=== PATIENT | male | born 1955 | race African-American/Black ===

== ENCOUNTER 2017-02-17 11:15 | Emergency (ER) | payer MEDICAID ==
[~2017-02-17] VITALS: Ht 185.4 cm; Wt 84.0 kg
[2017-02-17 11:18] VITALS: BP 179/102
[2017-02-17] MEDS ORDERED: METH10 PO (11:24)
[2017-02-17 11:27] LABS: GLUCOSE,POINT OF CARE 120 MG/DL (70-110)
== END 2017-02-17 11:24 | disposition left against medical advice (07) ==
LOC: EMS 11:17
DX: R69 Illness, unspecified (principal); Z53.21 Procedure and treatment not carried out due to patient leaving prior to being seen by health care provider
CPT/HCPCS: 82962

== ENCOUNTER 2024-01-14 12:15 | Emergency (ER) | payer MEDICARE, OTHER ==
[~2024-01-14] VITALS: Ht 182.9 cm; Wt 90.5 kg
[~2024-01-14 12:15] MED LIST: METH10 PO
[2024-01-14 12:29] VITALS: TEMP 97.7
[2024-01-14] MEDS ORDERED: TRAZ-257 PO (12:33)
[2024-01-14] MEDS ORDERED: SERT-440 PO (12:33)
[2024-01-14] MEDS ORDERED: OLME20TA68 PO (12:33)
[2024-01-14] MEDS ORDERED: RISP0.2515 PO (12:33)
[2024-01-14] MEDS ORDERED: TAMS0.4C94 PO (12:33)
[2024-01-14] MEDS ORDERED: GABA-1181 PO (12:33)
[2024-01-14] MEDS ORDERED: RISP1TAB48 PO (12:33)
[2024-01-14] MEDS: KETOROLAC TROMETHAMINE 30 MG/ML VIAL IVP ONE ×2 (12:52→15:51)
[2024-01-14] MEDS: SODIUM CHLORIDE 0.9% 1,000 ML IV ONE (12:52)
[2024-01-14 13:04] LABS: BASOPHILS % (AUTO) 0.6 % (0.0-2.0); EOSINOPHILS % (AUTO) 0.3 % (1.0-6.0); HEMATOCRIT 39.5 % (41-53); LYMPHOCYTES # (AUTO) 1.2 K/uL (1.0-4.8); LYMPHOCYTES % (AUTO) 12.7 % (22.0-44.0); MEAN CORPUSCULAR HGB CONC 32.8 G/dL (31.0-37.0); MEAN CORPUSCULAR VOLUME 95 fL (80-100); MONOCYTES # (AUTO) 0.6 K/uL (0.1-1.0); MONOCYTES % (AUTO) 6.6 % (2.0-9.0); NEUTROPHILS # (AUTO) 7.6 K/uL (1.8-7.7); NEUTROPHILS % (AUTO) 79.8 % (40.0-70.0); PLATELET COUNT (AUTO) 146 K/uL (150-450); RED BLOOD CELL COUNT(AUTO) 4.18 MIL/uL (4.50-5.90); RED CELL DISTRIBUTION WIDTH 15.3 % (11.5-14.5); WHITE BLOOD COUNT (AUTO) 9.5 K/uL (4.5-11.0)
[2024-01-14] MEDS ORDERED: SODIUM CHLORIDE 0.9% 100 ML ONE (13:05)
[2024-01-14] MEDS ORDERED: IOHEXOL 350 MG/ML 100 ML VIAL ONE (13:05)
[2024-01-14 13:13] LABS: CALCIUM, TOTAL 9.1 mg/dL (8.8-10.5); CREATININE 1.5 mg/dL (0.60-1.30); POTASSIUM 3.7 mmol/L (3.5-5.1)
[2024-01-14 13:19] LABS: ALBUMIN 3.2 g/dL (3.4-5.0); BILIRUBIN,TOTAL 0.4 mg/dL (0.1-1.0); TOTAL PROTEIN, SERUM 7.8 g/dL (6.4-8.2)
[2024-01-14 14:21] LABS: APPEARANCE,URINE CLEAR (CLEAR); BILIRUBIN,URINE NEGATIVE (NEGATIVE); COLOR,URINE YELLOW (YELLOW); GLUCOSE, URINE (UA) NEGATIVE (NEGATIVE); KETONES,URINE NEGATIVE (NEGATIVE); LEUKOCYTE ESTERASE ,URINE MODERATE (NEGATIVE); NITRATE,URINE NEGATIVE (NEGATIVE); OCCULT BLOOD,URINE MODERATE (NEGATIVE); PROTEIN,URINE 30-70 mg/dL (NEGATIVE); SPECIFIC GRAVITIY, URINE 1.031 (1.003-1.030); UROBILINOGEN,URINE <=1.0 mg/dL (<=1.0)
[2024-01-14 14:27] LABS: BACTERIA,URINE Few /HPF (None Seen); CALCIUM OXALATE CRYSTALS,UR Few /LPF (None Seen)
[2024-01-14 14:30] VITALS: BP 123/70; PULSE 71; RESP 20
[2024-01-14] MEDS: TraMADol HCL 50 MG TABLET PO ONE (15:51)
[2024-01-14] MEDS ORDERED: TRAM50TA5 PO (16:00)
[2024-01-14] MEDS ORDERED: CEPH-558 PO (16:02)
== END 2024-01-14 16:43 | disposition home or self-care (01) ==
LOC: EMS 12:16
DX: N20.0 Calculus of kidney (principal); Z85.46 Personal history of malignant neoplasm of prostate; Z85.89 Personal history of malignant neoplasm of other organs and systems
CPT/HCPCS: 99285; 74177; 96374; 96361; 80053; 81001; 83690; 85025; 36415; 87086; 87186; 96376; J1885; Q9967; J7030; J7050

== ENCOUNTER 2024-10-05 16:59 | Inpatient (IN) | payer MEDICARE, OTHER ==
[~2024-10-05] VITALS: Ht 180.3 cm; Wt 87.7 kg
[~2024-10-05 16:59] MED LIST changes: +CEPH-558 PO; +GABA-1181 PO; -METH10 PO; +OLME20TA68 PO; +RISP0.2515 PO; +RISP1TAB48 PO; +SERT-440 PO; +TAMS0.4C94 PO; +TRAM50TA5 PO; +TRAZ-257 PO
[2024-10-05 17:50] LABS: BASOPHILS % (AUTO) 0.7 % (0.0-2.0); EOSINOPHILS % (AUTO) 2.3 % (1.0-6.0); HEMATOCRIT 46.2 % (41-53); HEMOGLOBIN 15.1 g/dL (13.5-17.5); LYMPHOCYTES # (AUTO) 3.1 K/uL (1.0-4.8); LYMPHOCYTES % (AUTO) 37.9 % (22.0-44.0); MEAN CORPUSCULAR HEMOGLOBIN 31.2 pg (26.0-34.0); MEAN CORPUSCULAR HGB CONC 32.7 G/dL (31.0-37.0); MEAN CORPUSCULAR VOLUME 95 fL (80-100); MONOCYTES # (AUTO) 0.6 K/uL (0.1-1.0); MONOCYTES % (AUTO) 7.3 % (2.0-9.0); NEUTROPHILS # (AUTO) 4.2 K/uL (1.8-7.7); NEUTROPHILS % (AUTO) 51.8 % (40.0-70.0); PLATELET COUNT (AUTO) 146 K/uL (150-450); RED BLOOD CELL COUNT(AUTO) 4.86 MIL/uL (4.50-5.90); RED CELL DISTRIBUTION WIDTH 16.5 % (11.5-14.5); WHITE BLOOD COUNT (AUTO) 8.2 K/uL (4.5-11.0)
[2024-10-05 17:58] LABS: ANION GAP 13 mmol/L (8-16); CALCIUM, TOTAL 9.8 mg/dL (8.8-10.5); CARBON DIOXIDE 26 mmol/L (22-29); CHLORIDE 103 mmol/L (98-107); CREATININE 0.93 mg/dL (0.60-1.30); GLOMERULAR FILTR. RATE CALC > 60 mL/min (>60); GLUCOSE,RANDOM 76 mg/dL (70-110); POTASSIUM 3.6 mmol/L (3.5-5.1); SODIUM SERUM 142 mmol/L (136-145); UREA NITROGEN, BLOOD 13 mg/dL (7-18)
[2024-10-05 18:08] LABS: LIPASE 57 U/L (16-77); TROPONIN I-HIGH SENSITIVITY 40 ng/L (<76)
[2024-10-05 18:10] LABS: ALCOHOL, BLOOD (SERUM) 236 mg/dL (0-10)
[2024-10-05] MEDS ORDERED: SERT-439 PO (18:35)
[2024-10-05] MEDS ORDERED: NIFE-79 PO (18:35)
[2024-10-05] MEDS ORDERED: TRAZ-252 PO (18:35)
[2024-10-05] MEDS ORDERED: MELO-108 PO (18:35)
[2024-10-05] MEDS: SODIUM CHLORIDE 0.9% 2,000 ML IV ONE (18:41)
[2024-10-05 18:51] LABS: ALCOHOL, URINE DRUG SCREEN POSITIVE (NEGATIVE); AMPHET/METH SCREEN,URINE NEGATIVE (NEGATIVE); BARBITURATE SCREEN, URINE NEGATIVE (NEGATIVE); BENZODIAZEPINES SCREEN,URINE NEGATIVE (NEGATIVE); CANNABINOID SCREEN,URINE POSITIVE (NEGATIVE); COCAINE SCREEN,URINE NEGATIVE (NEGATIVE); METHADONE SCREEN, URINE NEGATIVE (NEGATIVE); OPIATE SCREEN,URINE NEGATIVE (NEGATIVE); PHENCYCLIDINE SCREEN,URINE NEGATIVE (NEGATIVE)
[2024-10-05] MEDS ORDERED: IPRATROPIUM BROMIDE 0.5 MG/2.5 ML NEB SOLUTION NEB PRN (19:30)
[2024-10-05] MEDS ORDERED: ONDANSETRON HCL 4 MG/2 ML VIAL IVP PRN (19:30)
[2024-10-05] MEDS ORDERED: ALBUTEROL SULFATE 2.5 MG/0.5 ML NEB SOLUTION NEB PRN (19:30)
[2024-10-05] MEDS: LORazepam 2 MG TABLET PO PRN (20:10)
[2024-10-05] MEDS: ACETAMINOPHEN 325 MG TABLET PO PRN (20:11)
[2024-10-05] MEDS: 1: MAGNESIUM SULFATE 2 GM, MVI, ADULT NO.1 WITH VIT K 10 ML, THIAMINE 100 MG, FOLIC ACID IV SCH (20:57)
[2024-10-05] MEDS: DOCUSATE SODIUM 100 MG CAPSULE PO SCH (21:03)
[2024-10-05 22:00] VITALS: BP 145/97; PULSE 99; RESP 19; TEMP 97.8; O2SAT 0; O2SAT 96
[2024-10-05] MEDS: POLYETHYLENE GLYCOL 3350 17 GM PACKET PO SCH (22:15)
[2024-10-05] MEDS: SENNOSIDES 8.8 MG/5 ML SYRUP UDCUP PO ONE (22:29)
[2024-10-06] MEDS: HEPARIN SODIUM,PORCINE 5,000 UNITS/ML VIAL SQ SCH
[2024-10-06 04:55] VITALS: BP 134/90; PULSE 73; RESP 19; TEMP 97.7; O2SAT 98
[2024-10-06 06:58] LABS: APPEARANCE,URINE CLEAR (CLEAR); BILIRUBIN,URINE NEGATIVE (NEGATIVE); COLOR,URINE YELLOW (YELLOW); GLUCOSE, URINE (UA) NEGATIVE (NEGATIVE); KETONES,URINE TRACE mg/dL (NEGATIVE); LEUKOCYTE ESTERASE ,URINE NEGATIVE (NEGATIVE); NITRATE,URINE NEGATIVE (NEGATIVE); OCCULT BLOOD,URINE SMALL (NEGATIVE); PROTEIN,URINE TRACE mg/dL (NEGATIVE); SPECIFIC GRAVITIY, URINE 1.022 (1.003-1.030)
[2024-10-06] MEDS ORDERED: LORazepam 2 MG TABLET PO PRN (07:00)
[2024-10-06 07:35] LABS: WBC,URINE None Seen /HPF (0-5)
[2024-10-06 07:36] LABS: BACTERIA,URINE None Seen /HPF (None Seen)
[2024-10-06 07:56] LABS: BASOPHILS % (AUTO) 0.9 % (0.0-2.0); EOSINOPHILS % (AUTO) 4.1 % (1.0-6.0); HEMATOCRIT 41.7 % (41-53); HEMOGLOBIN 13.7 g/dL (13.5-17.5); LYMPHOCYTES # (AUTO) 1.7 K/uL (1.0-4.8); MEAN CORPUSCULAR HEMOGLOBIN 31.3 pg (26.0-34.0); MEAN CORPUSCULAR VOLUME 95 fL (80-100); MONOCYTES # (AUTO) 0.4 K/uL (0.1-1.0); MONOCYTES % (AUTO) 9.4 % (2.0-9.0); NEUTROPHILS # (AUTO) 2.2 K/uL (1.8-7.7); NEUTROPHILS % (AUTO) 47.6 % (40.0-70.0); PLATELET COUNT (AUTO) 115 K/uL (150-450); RED BLOOD CELL COUNT(AUTO) 4.39 MIL/uL (4.50-5.90); RED CELL DISTRIBUTION WIDTH 16.4 % (11.5-14.5); WHITE BLOOD COUNT (AUTO) 4.6 K/uL (4.5-11.0)
[2024-10-06 08:07] LABS: ANION GAP 10 mmol/L (8-16); CARBON DIOXIDE 27 mmol/L (22-29); CHLORIDE 110 mmol/L (98-107); CREATININE 0.69 mg/dL (0.60-1.30); GLOMERULAR FILTR. RATE CALC > 60 mL/min (>60); GLUCOSE,RANDOM 79 mg/dL (70-110); SODIUM SERUM 147 mmol/L (136-145); UREA NITROGEN, BLOOD 10 mg/dL (7-18)
[2024-10-06 08:19] VITALS: BP 153/86; PULSE 66; RESP 18; TEMP 98.4; O2SAT 98
[2024-10-06] MEDS ORDERED: IOHEXOL 350 MG/ML 100 ML VIAL ONE (13:53)
[2024-10-06] MEDS ORDERED: SODIUM CHLORIDE 0.9% 100 ML ONE (13:53)
[2024-10-06] MEDS: MORPHINE SULFATE 2 MG/ML SYRINGE IVP PRN (16:49)
[2024-10-06 19:36] VITALS: BP 140/75; PULSE 64; RESP 18; TEMP 98.6; O2SAT 100
[2024-10-06] MEDS: LORazepam 2 MG TABLET PO SCH (21:01)
[2024-10-07 06:17] VITALS: BP 145/81; PULSE 61; RESP 17; TEMP 98.1; O2SAT 100
[2024-10-07 08:39] LABS: ANION GAP 10 mmol/L (8-16); CARBON DIOXIDE 26 mmol/L (22-29); CHLORIDE 106 mmol/L (98-107); CREATININE 0.66 mg/dL (0.60-1.30); GLOMERULAR FILTR. RATE CALC > 60 mL/min (>60); GLUCOSE,RANDOM 73 mg/dL (70-110); POTASSIUM 3.9 mmol/L (3.5-5.1); SODIUM SERUM 142 mmol/L (136-145); UREA NITROGEN, BLOOD 6 mg/dL (7-18)
[2024-10-07 08:42] LABS: BASOPHILS % (AUTO) 0.8 % (0.0-2.0); EOSINOPHILS % (AUTO) 4.4 % (1.0-6.0); HEMATOCRIT 40.6 % (41-53); HEMOGLOBIN 13.4 g/dL (13.5-17.5); LYMPHOCYTES # (AUTO) 1.6 K/uL (1.0-4.8); LYMPHOCYTES % (AUTO) 36.8 % (22.0-44.0); MEAN CORPUSCULAR HEMOGLOBIN 31.5 pg (26.0-34.0); MEAN CORPUSCULAR HGB CONC 33.1 G/dL (31.0-37.0); MEAN CORPUSCULAR VOLUME 95 fL (80-100); MONOCYTES # (AUTO) 0.4 K/uL (0.1-1.0); NEUTROPHILS # (AUTO) 2.1 K/uL (1.8-7.7); PLATELET COUNT (AUTO) 96 K/uL (150-450); RED BLOOD CELL COUNT(AUTO) 4.27 MIL/uL (4.50-5.90); RED CELL DISTRIBUTION WIDTH 16.1 % (11.5-14.5); WHITE BLOOD COUNT (AUTO) 4.5 K/uL (4.5-11.0)
[2024-10-07] MEDS ORDERED: SODIUM CHLORIDE 0.9% 1,000 ML ONE (09:00)
[2024-10-07] MEDS ORDERED: POLY17PO62 PO (13:49)
[2024-10-07] MEDS ORDERED: DOCU-385 PO (13:49)
[2024-10-08] MEDS ORDERED: LORazepam 1 MG TABLET PO PRN (07:00)
[2024-10-08] MEDS ORDERED: LORazepam 1 MG TABLET PO SCH (09:00)
[2024-10-09 01:07] LABS: HEPATITIS C AB (EIA) Reactive (Non Reactive)
[2024-10-09] MEDS ORDERED: LORazepam 1 MG TABLET PO PRN (07:00)
== END 2024-10-07 17:20 | disposition home health service (06) | DRG 392 ==
LOC: EMS 16:59 → EDH 19:17 → 6S 21:42
PROVIDERS: ADMIT Internal Medicine; ATTEND Internal Medicine
DX: K59.00 Constipation, unspecified (principal); F10.239 Alcohol dependence with withdrawal, unspecified; E87.20 Acidosis, unspecified; D69.6 Thrombocytopenia, unspecified; I10 Essential (primary) hypertension; F32.A Depression, unspecified; F10.229 Alcohol dependence with intoxication, unspecified; R10.10 Upper abdominal pain, unspecified; F11.90 Opioid use, unspecified, uncomplicated; N40.0 Benign prostatic hyperplasia without lower urinary tract symptoms; Z88.0 Allergy status to penicillin; Z85.46 Personal history of malignant neoplasm of prostate
CPT/HCPCS: 71045; 74176; 74177; 80048; 80307; 81001; 83605; 83690; 83735; 84484; 85025; 86803; 87340; 93005; 96360; 99285; G0480; J1644; J2270; J3411; J3475; J3490; J7030; J7050; 36415-L1; 36415-TC

== ENCOUNTER 2024-12-15 07:49 | Emergency (ER) | payer MEDICARE, OTHER ==
[~2024-12-15] VITALS: Ht 182.9 cm; Wt 87.3 kg
[~2024-12-15 07:49] MED LIST changes: -CEPH-558 PO; +DOCU-385 PO; +POLY17PO62 PO; -RISP0.2515 PO; -RISP1TAB48 PO; +SERT-439 PO; -SERT-440 PO; -TRAM50TA5 PO; -TRAZ-257 PO
[2024-12-15 07:53] VITALS: BP 151/83; PULSE 85; RESP 16; TEMP 97.9; O2SAT 98
[2024-12-15] MEDS ORDERED: MELO-108 PO (07:55)
[2024-12-15] MEDS ORDERED: AMLO2.5T29 PO (07:55)
[2024-12-15] MEDS: PERTUSS(ACELL),DIPH,TET/PF 0.5 ML SYRINGE [ADULT] IM. ONE (08:25)
[2024-12-15] MEDS: LIDOCAINE 1% 10 ML VIAL SQ ONE (08:26)
[2024-12-15] MEDS ORDERED: DOXY-354 PO (09:04)
== END 2024-12-15 13:25 | disposition home or self-care (01) ==
LOC: EMS 07:49
DX: S01.111A Laceration without foreign body of right eyelid and periocular area, initial encounter (principal); I10 Essential (primary) hypertension; F10.90 Alcohol use, unspecified, uncomplicated; Z88.0 Allergy status to penicillin; Z79.1 Long term (current) use of non-steroidal anti-inflammatories (NSAID); Z79.899 Other long term (current) drug therapy; W01.0XXA Fall on same level from slipping, tripping and stumbling without subsequent striking against object, initial encounter; Y93.89 Activity, other specified; Y92.89 Other specified places as the place of occurrence of the external cause; Y99.8 Other external cause status; Y90.9 Presence of alcohol in blood, level not specified
CPT/HCPCS: 99283; 90715; 90471; 12011; J3490

== ENCOUNTER 2025-07-01 17:03 | Inpatient (IN) | payer MEDICARE, OTHER ==
[~2025-07-01] VITALS: Ht 182.9 cm; Wt 73.3 kg
[~2025-07-01 17:03] MED LIST changes: +AMLO2.5T29 PO; -DOCU-385 PO; +DOXY-354 PO; +MELO-108 PO; -POLY17PO62 PO; -SERT-439 PO
[2025-07-01 17:47] LABS: PLATELET COUNT (AUTO) 365 K/uL (150-450); RED BLOOD CELL COUNT(AUTO) 5.15 MIL/uL (4.50-5.90); RED CELL DISTRIBUTION WIDTH 15.5 % (11.5-14.5); WHITE BLOOD COUNT (AUTO) 13.0 K/uL (4.5-11.0)
[2025-07-01 17:56] LABS: CALCIUM, TOTAL 10.5 mg/dL (8.8-10.5); CREATININE 2.02 mg/dL (0.60-1.30); GLOMERULAR FILTR. RATE CALC 40.0 mL/min (>60); GLUCOSE,RANDOM 108.0 mg/dL (70-110); SODIUM SERUM 131.0 mmol/L (136-145); UREA NITROGEN, BLOOD 27.0 mg/dL (7-18)
[2025-07-01 20:46] LABS: ALCOHOL, BLOOD (SERUM) < 3 mg/dL (0-10)
[2025-07-01 20:49] LABS: ASPARTATE AMINOTRANSFERASE 28 U/L (15-37); TOTAL PROTEIN, SERUM 9.3 g/dL (6.4-8.2)
[2025-07-01] MEDS: MORPHINE SULFATE 4 MG/ML SYRINGE IVP ONE (20:58)
[2025-07-01] MEDS: SODIUM CHLORIDE 0.9% 1,000 ML IV ONE (20:58)
[2025-07-01] MEDS: ONDANSETRON HCL 4 MG/2 ML VIAL IVP ONE (20:58)
[2025-07-01] MEDS ORDERED: 0.9% SODIUM CHLORIDE 10 ML SYRINGE IVP PRN (22:15)
[2025-07-01] MEDS ORDERED: IOHEXOL 350 MG/ML 100 ML VIAL ONE (22:25)
[2025-07-01] MEDS ORDERED: 0.9% SODIUM CHLORIDE 10 ML SYRINGE IVP ONE (22:25)
[2025-07-01 23:14] LABS: PH,URINE DRUG SCREEN 5.5 (5.0-8.0)
[2025-07-01 23:20] LABS: ALCOHOL, URINE DRUG SCREEN NEGATIVE (NEGATIVE); AMPHET/METH SCREEN,URINE NEGATIVE (NEGATIVE); BARBITURATE SCREEN, URINE NEGATIVE (NEGATIVE); CANNABINOID SCREEN,URINE POSITIVE (NEGATIVE); COCAINE SCREEN,URINE NEGATIVE (NEGATIVE); METHADONE SCREEN, URINE NEGATIVE (NEGATIVE)
[2025-07-01 23:24] VITALS: BP 121/79; PULSE 97; RESP 19; TEMP 97.5; O2SAT 97
[2025-07-01 23:26] LABS: APPEARANCE,URINE CLEAR (CLEAR); GLUCOSE, URINE (UA) NEGATIVE (NEGATIVE); LEUKOCYTE ESTERASE ,URINE SMALL (NEGATIVE); NITRATE,URINE NEGATIVE (NEGATIVE); OCCULT BLOOD,URINE NEGATIVE (NEGATIVE); SPECIFIC GRAVITIY, URINE 1.009 (1.003-1.030)
[2025-07-02] MEDS ORDERED: MetroNIDAZOLE 500 MG/NACL 100 ML IV SCH
[2025-07-02 00:06] LABS: CALCIUM, TOTAL 8.9 mg/dL (8.8-10.5); CREATININE 1.76 mg/dL (0.60-1.30); GLOMERULAR FILTR. RATE CALC 47 mL/min (>60); GLUCOSE,RANDOM 104 mg/dL (70-110); SODIUM SERUM 130 mmol/L (136-145); UREA NITROGEN, BLOOD 25 mg/dL (7-18)
[2025-07-02 00:08] LABS: SQUAMOUS EPITHELIAL CELL,UR Rare /LPF (None Seen)
[2025-07-02 00:09] LABS: PLATELET COUNT (AUTO) 251 K/uL (150-450); RED BLOOD CELL COUNT(AUTO) 4.19 MIL/uL (4.50-5.90); RED CELL DISTRIBUTION WIDTH 15.5 % (11.5-14.5); WHITE BLOOD COUNT (AUTO) 10.9 K/uL (4.5-11.0)
[2025-07-02 00:10] LABS: ASPARTATE AMINOTRANSFERASE 21 U/L (15-37); LACTATE DEHYDROGENASE 176 U/L (85-227); TOTAL PROTEIN, SERUM 7.0 g/dL (6.4-8.2)
[2025-07-02 00:15] LABS: LACTIC ACID 1.6 mmol/L (0.4-2.0)
[2025-07-02] MEDS: SODIUM CHLORIDE 0.9% 2,250 ML IV ONE (01:07)
[2025-07-02] MEDS: CefTRIAXone 1 GM/DEXTROSE 50 ML IV SCH (01:07)
[2025-07-02] MEDS: MetroNIDAZOLE 500 MG/NACL 100 ML IV SCH (01:35)
[2025-07-02 07:01] LABS: PLATELET COUNT (AUTO) 245 K/uL (150-450); RED BLOOD CELL COUNT(AUTO) 4.17 MIL/uL (4.50-5.90); RED CELL DISTRIBUTION WIDTH 15.1 % (11.5-14.5); WHITE BLOOD COUNT (AUTO) 22.8 K/uL (4.5-11.0)
[2025-07-02 07:49] LABS: BAND NEUTROPHILS % (MANUAL) 22 % (0-5); LYMPHOCYTES % (MANUAL) 3 % (22-44); MONOCYTES % (MANUAL) 2 % (2-9); SEGMENTED NEUTROPHILS % 73 % (40-70)
[2025-07-02 08:00] VITALS: BP 105/65; PULSE 110; RESP 18; TEMP 100.2; O2SAT 100
[2025-07-02] MEDS: MORPHINE SULFATE 4 MG/ML SYRINGE IVP PRN (08:07)
[2025-07-02] MEDS: PANTOPRAZOLE SODIUM 40 MG/VIAL IVP SCH (08:07)
[2025-07-02] MEDS: DOCUSATE SODIUM 100 MG CAPSULE PO SCH (09:00)
[2025-07-02] MEDS: ACETYLCYSTEINE 20% 200 MG/ML 4 ML ORAL SOLUTION PO SCH (09:00)
[2025-07-02 11:15] VITALS: BP 83/64; PULSE 111; RESP 18; TEMP 100; O2SAT 98
[2025-07-02] MEDS: SODIUM CHLORIDE 0.9% 500 ML IV ONE (11:33)
[2025-07-02 11:50] VITALS: BP 83/61; RESP 18; O2SAT 99
[2025-07-02 12:00] VITALS: BP 94/56; PULSE 115; RESP 21; TEMP 100.1; O2SAT 99
[2025-07-02 16:00] VITALS: BP 100/68; PULSE 111; RESP 21; TEMP 100.2; O2SAT 93
[2025-07-02] MEDS: ACETAMINOPHEN 325 MG TABLET PO PRN (17:12)
[2025-07-02] MEDS: ONDANSETRON HCL 4 MG/2 ML VIAL IVP PRN (17:19)
[2025-07-02 19:08] LABS: CALCIUM, TOTAL 8.0 mg/dL (8.8-10.5); CREATININE 1.47 mg/dL (0.60-1.30); GLOMERULAR FILTR. RATE CALC 58.0 mL/min (>60); GLUCOSE,RANDOM 95.0 mg/dL (70-110); SODIUM SERUM 135.0 mmol/L (136-145); UREA NITROGEN, BLOOD 21.0 mg/dL (7-18)
[2025-07-02 20:00] VITALS: BP 105/63; PULSE 97; RESP 18; TEMP 98.6; O2SAT 97
[2025-07-02] MEDS ORDERED: METOPROLOL SUCCINATE 25 MG ER TABLET PO SCH (21:00)
[2025-07-02] MEDS: POTASSIUM CHLORIDE 10% 40 MEQ/30 ML LIQUID UDCUP GT ONE (23:25)
[2025-07-02] MEDS: ETHYL ALCOHOL 62% ANTISEPTIC NASAL SANITIZER 0.6 ML AMPUL NASAL SCH (23:25)
[2025-07-02] MEDS: HEPARIN SODIUM,PORCINE 5,000 UNITS/ML VIAL SQ SCH (23:49)
[2025-07-03] VITALS (7 sets, daily range): BP systolic 106–124; BP diastolic 64–88; PULSE 88–109; RESP 18–26; TEMP 98.6–99.1; O2SAT 94–98
[2025-07-03 06:06] LABS: PLATELET COUNT (AUTO) 189 K/uL (150-450); RED BLOOD CELL COUNT(AUTO) 3.72 MIL/uL (4.50-5.90); RED CELL DISTRIBUTION WIDTH 15.3 % (11.5-14.5); WHITE BLOOD COUNT (AUTO) 21.7 K/uL (4.5-11.0)
[2025-07-03 07:13] LABS: CALCIUM, TOTAL 8.2 mg/dL (8.8-10.5); CREATININE 1.29 mg/dL (0.60-1.30); GLOMERULAR FILTR. RATE CALC > 60 mL/min (>60); GLUCOSE,RANDOM 94 mg/dL (70-110); SODIUM SERUM 137 mmol/L (136-145); UREA NITROGEN, BLOOD 19 mg/dL (7-18)
[2025-07-03] MEDS: DEXTROSE 5%-LACTATED RINGERS 1,000 ML IV SCH (08:30)
[2025-07-03] MEDS: MAGNESIUM SULFATE 2 GM/WATER 50 ML IV ONE (08:31)
[2025-07-03] MEDS ORDERED: DIATRIZOATE MEGLU/SOD 660/100 MG/ML 120 ML BOTTLE ONE (09:00)
[2025-07-03 10:48] LABS: BAND NEUTROPHILS % (MANUAL) 17 % (0-5); LYMPHOCYTES % (MANUAL) 7 % (22-44); MONOCYTES % (MANUAL) 3 % (2-9); RBC MORPHOLOGY COMMENT NORMAL RBC MORPH; SEGMENTED NEUTROPHILS % 73 % (40-70)
[2025-07-04] VITALS (7 sets, daily range): BP systolic 110–148; BP diastolic 62–89; PULSE 83–104; RESP 15–24; TEMP 98.2–98.8; O2SAT 95–100
[2025-07-04 06:17] LABS: PLATELET COUNT (AUTO) 164 K/uL (150-450); RED BLOOD CELL COUNT(AUTO) 3.77 MIL/uL (4.50-5.90); RED CELL DISTRIBUTION WIDTH 16.1 % (11.5-14.5); WHITE BLOOD COUNT (AUTO) 14.1 K/uL (4.5-11.0)
[2025-07-04 06:31] LABS: ASPARTATE AMINOTRANSFERASE 25 U/L (15-37); CALCIUM, TOTAL 8.6 mg/dL (8.8-10.5); CREATININE 1.07 mg/dL (0.60-1.30); GLOMERULAR FILTR. RATE CALC > 60 mL/min (>60); GLUCOSE,RANDOM 130 mg/dL (70-110); SODIUM SERUM 141 mmol/L (136-145); TOTAL PROTEIN, SERUM 6.6 g/dL (6.4-8.2); UREA NITROGEN, BLOOD 15 mg/dL (7-18)
[2025-07-04 08:11] LABS: BAND NEUTROPHILS % (MANUAL) 24 % (0-5); LYMPHOCYTES % (MANUAL) 4 % (22-44); MONOCYTES % (MANUAL) 3 % (2-9); SEGMENTED NEUTROPHILS % 69 % (40-70)
[2025-07-04] MEDS: POTASSIUM CHL 10 MEQ/WATER 50 ML IV SCH (09:33)
[2025-07-04] MEDS ORDERED: SODIUM CHLORIDE 0.9% 500 ML IV ONE (16:29)
[2025-07-05] VITALS (7 sets, daily range): BP systolic 116–155; BP diastolic 65–95; PULSE 81–93; RESP 17–20; TEMP 97.7–99.7; O2SAT 96–100
[2025-07-05 08:36] LABS: PLATELET COUNT (AUTO) 144 K/uL (150-450); RED BLOOD CELL COUNT(AUTO) 3.51 MIL/uL (4.50-5.90); RED CELL DISTRIBUTION WIDTH 16.1 % (11.5-14.5); WHITE BLOOD COUNT (AUTO) 10.3 K/uL (4.5-11.0)
[2025-07-05 08:39] LABS: BAND NEUTROPHILS % (MANUAL) 18 % (0-5); LYMPHOCYTES % (MANUAL) 7 % (22-44); MONOCYTES % (MANUAL) 5 % (2-9); SEGMENTED NEUTROPHILS % 70 % (40-70)
[2025-07-05 09:08] LABS: CREATININE 1.03 mg/dL (0.60-1.30); GLUCOSE,RANDOM 100 mg/dL (70-110); SODIUM SERUM 142 mmol/L (136-145); UREA NITROGEN, BLOOD 9 mg/dL (7-18)
[2025-07-05 09:09] LABS: ASPARTATE AMINOTRANSFERASE 20 U/L (15-37); GLOMERULAR FILTR. RATE CALC > 60 mL/min (>60); TOTAL PROTEIN, SERUM 6.0 g/dL (6.4-8.2)
[2025-07-05 09:22] LABS: CALCIUM, TOTAL 8.1 mg/dL (8.8-10.5)
[2025-07-06] VITALS (9 sets, daily range): BP systolic 97–142; BP diastolic 68–92; PULSE 78–134; RESP 17–19; TEMP 97.9–99.3; O2SAT 95–100
[2025-07-06 06:55] LABS: PLATELET COUNT (AUTO) 154 K/uL (150-450); RED BLOOD CELL COUNT(AUTO) 3.82 MIL/uL (4.50-5.90); RED CELL DISTRIBUTION WIDTH 15.9 % (11.5-14.5); WHITE BLOOD COUNT (AUTO) 8.3 K/uL (4.5-11.0)
[2025-07-06 07:36] LABS: ASPARTATE AMINOTRANSFERASE 19 U/L (15-37); CALCIUM, TOTAL 7.9 mg/dL (8.8-10.5); CREATININE 0.90 mg/dL (0.60-1.30); GLOMERULAR FILTR. RATE CALC > 60 mL/min (>60); GLUCOSE,RANDOM 110 mg/dL (70-110); SODIUM SERUM 138 mmol/L (136-145); TOTAL PROTEIN, SERUM 6.2 g/dL (6.4-8.2); UREA NITROGEN, BLOOD 4 mg/dL (7-18)
[2025-07-06] MEDS: ONDANSETRON HCL 4 MG/2 ML VIAL IVP PRN (10:37)
[2025-07-06] MEDS: POTASSIUM CHLORIDE 20 MEQ ER TABLET PO ONE (16:43)
[2025-07-06] MEDS: *CLINICAL-TOTAL PARENTERAL NUTRITION DOSING CLINICAL ONE (17:55)
[2025-07-07] VITALS (9 sets, daily range): BP systolic 94–109; BP diastolic 62–78; PULSE 88–119; RESP 18–19; TEMP 98.1–98.8; O2SAT 97–100
[2025-07-07 06:23] LABS: PLATELET COUNT (AUTO) 181 K/uL (150-450); RED BLOOD CELL COUNT(AUTO) 4.33 MIL/uL (4.50-5.90); RED CELL DISTRIBUTION WIDTH 15.8 % (11.5-14.5); WHITE BLOOD COUNT (AUTO) 8.4 K/uL (4.5-11.0)
[2025-07-07 06:31] LABS: ASPARTATE AMINOTRANSFERASE 21 U/L (15-37); CALCIUM, TOTAL 8.5 mg/dL (8.8-10.5); CREATININE 0.99 mg/dL (0.60-1.30); GLOMERULAR FILTR. RATE CALC > 60 mL/min (>60); GLUCOSE,RANDOM 130 mg/dL (70-110); SODIUM SERUM 139 mmol/L (136-145); TOTAL PROTEIN, SERUM 6.4 g/dL (6.4-8.2); UREA NITROGEN, BLOOD 8 mg/dL (7-18)
[2025-07-07 09:32] LABS: PHOSPHORUS 2.7 mg/dL (2.5-4.9)
[2025-07-07] MEDS: MAGNESIUM SULFATE 2 GM in DEXTROSE 5%-WATER 50 ML IV ONE (13:57)
[2025-07-07] MEDS: TPN SOLUTION 1 EA, SODIUM CHLORIDE 70 MEQ, SODIUM PHOS,M-BASIC-D-BASIC 30 MEQ, POTASSIU... IV SCH (22:25)
[2025-07-08 04:53] VITALS: BP 97/73; PULSE 109; RESP 18; TEMP 98.2; O2SAT 97
[2025-07-08 06:33] LABS: PLATELET COUNT (AUTO) 141 K/uL (150-450); RED BLOOD CELL COUNT(AUTO) 3.55 MIL/uL (4.50-5.90); RED CELL DISTRIBUTION WIDTH 16.0 % (11.5-14.5); WHITE BLOOD COUNT (AUTO) 7.0 K/uL (4.5-11.0)
[2025-07-08 06:59] LABS: ASPARTATE AMINOTRANSFERASE 15 U/L (15-37); CALCIUM, TOTAL 7.7 mg/dL (8.8-10.5); CREATININE 0.84 mg/dL (0.60-1.30); GLOMERULAR FILTR. RATE CALC > 60 mL/min (>60); GLUCOSE,RANDOM 136 mg/dL (70-110); PHOSPHORUS 2.5 mg/dL (2.5-4.9); SODIUM SERUM 140 mmol/L (136-145); TOTAL PROTEIN, SERUM 5.3 g/dL (6.4-8.2); UREA NITROGEN, BLOOD 7 mg/dL (7-18)
[2025-07-08 08:00] VITALS: BP 96/69; PULSE 99; RESP 19; TEMP 98.2; O2SAT 100
[2025-07-08] MEDS: POTASSIUM CHLORIDE 20 MEQ ER TABLET PO ONE (08:20)
[2025-07-08] MEDS ORDERED: POTASSIUM CHL 10 MEQ/WATER 50 ML IV SCH (08:30)
[2025-07-08] MEDS ORDERED: SODIUM CHLORIDE 0.9% 250 ML IV ONE (09:43)
[2025-07-08] MEDS: MAGNESIUM SULFATE 1 GM in DEXTROSE 5%-WATER 50 ML IV ONE (09:47)
[2025-07-08] MEDS: POTASSIUM CHL 10 MEQ/WATER 50 ML IV SCH ×2 (09:50→19:57)
[2025-07-08 11:05] VITALS: BP 97/72; PULSE 98; RESP 18; TEMP 98.2; O2SAT 99
[2025-07-08] MEDS: FAT EMULSION 20% 100 ML IV SCH (11:05)
[2025-07-08 15:53] VITALS: BP 97/71; PULSE 98; RESP 18; TEMP 98.4; O2SAT 96
[2025-07-08 20:21] VITALS: BP 97/64; PULSE 105; RESP 18; TEMP 98.6; O2SAT 96
[2025-07-08] MEDS: TPN SOLUTION 1 EA, SODIUM CHLORIDE 70 MEQ, SODIUM PHOS,M-BASIC-D-BASIC 30 MEQ, POTASSIU... IV SCH (22:29)
[2025-07-09] VITALS (7 sets, daily range): BP systolic 92–112; BP diastolic 61–91; PULSE 102–125; RESP 17–18; TEMP 97.7–100; O2SAT 95–100
[2025-07-09 06:17] LABS: PLATELET COUNT (AUTO) 155 K/uL (150-450); RED BLOOD CELL COUNT(AUTO) 3.75 MIL/uL (4.50-5.90); RED CELL DISTRIBUTION WIDTH 16.3 % (11.5-14.5); WHITE BLOOD COUNT (AUTO) 11.0 K/uL (4.5-11.0)
[2025-07-09] MEDS: INSULIN REGULAR, HUMAN 100 UNITS/ML SQ PRN (06:17)
[2025-07-09 06:23] LABS: ASPARTATE AMINOTRANSFERASE 20 U/L (15-37); CREATININE 0.80 mg/dL (0.60-1.30); GLOMERULAR FILTR. RATE CALC > 60 mL/min (>60); GLUCOSE,RANDOM 131 mg/dL (70-110); PHOSPHORUS 1.7 mg/dL (2.5-4.9); SODIUM SERUM 140 mmol/L (136-145); TOTAL PROTEIN, SERUM 5.8 g/dL (6.4-8.2); UREA NITROGEN, BLOOD 5 mg/dL (7-18)
[2025-07-09 06:27] LABS: CALCIUM, TOTAL 7.7 mg/dL (8.8-10.5)
[2025-07-09] MEDS: TPN SOLUTION 1 EA, SODIUM CHLORIDE 70 MEQ, SODIUM PHOS,M-BASIC-D-BASIC 30 MEQ, POTASSIU... IV SCH (23:00)
[2025-07-10] VITALS (14 sets, daily range): BP systolic 78–128; BP diastolic 56–102; PULSE 112–163; RESP 16–40; TEMP 98.2–100.7; O2SAT 0–100
[2025-07-10] MEDS ORDERED: SODIUM CHLORIDE 0.9% 250 ML IV ONE (04:02)
[2025-07-10] MEDS: SODIUM CHLORIDE 0.9% 250 ML IV ONE ×2 (04:19→06:01)
[2025-07-10 07:00] LABS: PLATELET COUNT (AUTO) 131 K/uL (150-450); RED BLOOD CELL COUNT(AUTO) 3.40 MIL/uL (4.50-5.90); RED CELL DISTRIBUTION WIDTH 16.9 % (11.5-14.5); WHITE BLOOD COUNT (AUTO) 14.0 K/uL (4.5-11.0)
[2025-07-10 07:15] LABS: ASPARTATE AMINOTRANSFERASE 28 U/L (15-37); CALCIUM, TOTAL 7.7 mg/dL (8.8-10.5); CREATININE 0.99 mg/dL (0.60-1.30); GLOMERULAR FILTR. RATE CALC > 60 mL/min (>60); GLUCOSE,RANDOM 140 mg/dL (70-110); SODIUM SERUM 139 mmol/L (136-145); TOTAL PROTEIN, SERUM 5.7 g/dL (6.4-8.2); UREA NITROGEN, BLOOD 6 mg/dL (7-18)
[2025-07-10 07:21] LABS: PHOSPHORUS 2.7 mg/dL (2.5-4.9)
[2025-07-10] MEDS ORDERED: SODIUM CHLORIDE 0.9% 500 ML IV ONE (09:51)
[2025-07-10] MEDS: MAGNESIUM SULFATE 2 GM in DEXTROSE 5%-WATER 50 ML IV ONE (09:54)
[2025-07-10] MEDS: POTASSIUM CHL 10 MEQ/WATER 50 ML IV SCH (11:29)
[2025-07-10] MEDS ORDERED: ACETAMINOPHEN 1000 MG/ISO-OSM 100 ML IV ONE (12:46)
[2025-07-10] MEDS ORDERED: SODIUM CHLORIDE 0.9% 1,000 ML ONE (13:04)
[2025-07-10] MEDS: ACETAMINOPHEN 1000 MG/ISO-OSM 100 ML IV ONE (13:14)
[2025-07-10] MEDS: *CLINICAL-MEROPENEM DOSING CLINICAL ONE (13:32)
[2025-07-10 13:39] LABS: PLATELET COUNT (AUTO) 169 K/uL (150-450); RED BLOOD CELL COUNT(AUTO) 3.85 MIL/uL (4.50-5.90); RED CELL DISTRIBUTION WIDTH 17.3 % (11.5-14.5); WHITE BLOOD COUNT (AUTO) 13.8 K/uL (4.5-11.0)
[2025-07-10 13:46] LABS: ABG A-A DIFF O2 560.2 mmHg (10-20.0); ABG BASE EXCESS -6.0 mmol/L (-2.0-3.0); ABG CARBOXYHEMOGLOBIN 0.4 % (0.5-1.5); ABG HCO3 20.9 mmol/L (21.0-28.0); ABG METHEMOGLOBIN 1.1 % (0.0-1.5); ABG OXYGEN CONTENT 16.4 mL/dL (15.0-23.0); ABG OXYGEN SATURATION 99.0 % (94.0-98.0); ABG OXYHEMOGLOBIN 97.5 % (94.0-98.0); ABG PCO2 24 mmHg (32.0-48.0); ABG PH 7.482 (7.350-7.450); ABG TOTAL HEMOGLOBIN 11.8 G/dL (13.5-17.5); ALLEN TEST, BLOOD GAS Positive; FLOW, BLOOD GAS 15.00 L/min (0.00-15.00); FRACTIONATED INSPIRED OXYGEN 100.0 % (21-100.0); O2 DEVICE,BLOOD GAS NON REBREATHER (ROOM AIR); PO2, ARTERIAL BG 125.4 mmHg (83.0-108.0); SITE, BLOOD GAS RT RADIAL; SOURCE, BLOOD GAS ARTERIAL; TEMPERATURE, FAHRENHEIT, BG 101.2 FAHREN (96.0-98.6)
[2025-07-10 13:52] LABS: CALCIUM, TOTAL 7.9 mg/dL (8.8-10.5); CREATININE 1.12 mg/dL (0.60-1.30); GLOMERULAR FILTR. RATE CALC > 60 mL/min (>60); GLUCOSE,RANDOM 155 mg/dL (70-110); SODIUM SERUM 138 mmol/L (136-145); UREA NITROGEN, BLOOD 6 mg/dL (7-18)
[2025-07-10 13:57] LABS: ASPARTATE AMINOTRANSFERASE 29 U/L (15-37); TOTAL PROTEIN, SERUM 6.7 g/dL (6.4-8.2)
[2025-07-10] MEDS ORDERED: IOHEXOL 350 MG/ML 100 ML VIAL ONE (14:01)
[2025-07-10] MEDS ORDERED: 0.9% SODIUM CHLORIDE 10 ML SYRINGE IVP ONE (14:01)
[2025-07-10 14:05] LABS: LACTIC ACID 5.1 mmol/L (0.4-2.0)
[2025-07-10] MEDS: MEROPENEM 1 GM in SODIUM CHLORIDE 0.9% 50 ML IV SCH (14:25)
[2025-07-10] MEDS: SODIUM CHLORIDE 0.9% 2,100 ML IV ONE (14:25)
[2025-07-10] MEDS: CASPOFUNGIN ACETATE 70 MG in SODIUM CHLORIDE 0.9% 250 ML IV ONE (17:00)
[2025-07-10] MEDS: NICOTINE 21 MG/24 HOUR PATCH TD SCH (17:27)
[2025-07-10] MEDS: VANCOMYCIN 1.75GM/WATER(PEG) 350 ML IV ONE (18:25)
[2025-07-10] MEDS: DEXTROSE 50%-WATER 25 GM/50 ML SYRINGE IVP PRN (18:53)
[2025-07-10 18:57] LABS: APPEARANCE,URINE CLEAR (CLEAR); GLUCOSE, URINE (UA) NEGATIVE (NEGATIVE); LEUKOCYTE ESTERASE ,URINE NEGATIVE (NEGATIVE); NITRATE,URINE NEGATIVE (NEGATIVE); OCCULT BLOOD,URINE NEGATIVE (NEGATIVE)
[2025-07-10 19:04] LABS: SPECIFIC GRAVITIY, URINE > 1.050 (1.003-1.030)
[2025-07-10 20:06] LABS: GLUCOMETER DEV NAME(LOC) ICU.S7; GLUCOSE,POINT OF CARE 66 MG/DL (70-110)
[2025-07-10] MEDS: BUDESONIDE 0.5 MG/2 ML NEB SOLUTION NEB SCH (20:13)
[2025-07-10] MEDS: CHLORHEXIDINE GLUCONATE 2% TOWELETTE [2'S/6'S] TP SCH (22:09)
[2025-07-10 22:10] LABS: GLUCOMETER DEV NAME(LOC) ICU.S7; GLUCOSE,POINT OF CARE 162 MG/DL (70-110)
[2025-07-10] MEDS: TPN SOLUTION 1 EA, SODIUM CHLORIDE 70 MEQ, SODIUM PHOS,M-BASIC-D-BASIC 30 MEQ, POTASSIU... IV SCH (22:17)
[2025-07-11] VITALS (10 sets, daily range): BP systolic 78–130; BP diastolic 39–85; PULSE 111–137; RESP 24–40; TEMP 98.3–99.1; O2SAT 83–99
[2025-07-11 06:11] LABS: GLUCOMETER DEV NAME(LOC) ICUN.7; GLUCOSE,POINT OF CARE 139 MG/DL (70-110)
[2025-07-11 06:14] LABS: PLATELET COUNT (AUTO) 139 K/uL (150-450); RED BLOOD CELL COUNT(AUTO) 3.45 MIL/uL (4.50-5.90); RED CELL DISTRIBUTION WIDTH 17.4 % (11.5-14.5); WHITE BLOOD COUNT (AUTO) 13.2 K/uL (4.5-11.0)
[2025-07-11 06:22] LABS: ASPARTATE AMINOTRANSFERASE 26 U/L (15-37); CALCIUM, TOTAL 7.8 mg/dL (8.8-10.5); CREATININE 1.04 mg/dL (0.60-1.30); GLOMERULAR FILTR. RATE CALC > 60 mL/min (>60); GLUCOSE,RANDOM 138 mg/dL (70-110); PHOSPHORUS 2.7 mg/dL (2.5-4.9); SODIUM SERUM 140 mmol/L (136-145); TOTAL PROTEIN, SERUM 6.3 g/dL (6.4-8.2); UREA NITROGEN, BLOOD 7 mg/dL (7-18)
[2025-07-11 07:20] LABS: GLUCOMETER DEV NAME(LOC) ICU.S7; GLUCOSE,POINT OF CARE 142 MG/DL (70-110)
[2025-07-11] MEDS: VANCOMYCIN 1GM/WATER(PEG/NADA) 200 ML IV SCH (07:45)
[2025-07-11 11:14] LABS: TROPONIN I-HIGH SENSITIVITY 471 ng/L (<76)
[2025-07-11 13:41] LABS: GLUCOMETER DEV NAME(LOC) ICU.S7; GLUCOSE,POINT OF CARE 125 MG/DL (70-110)
[2025-07-11] MEDS: CASPOFUNGIN ACETATE 50 MG in SODIUM CHLORIDE 0.9% 250 ML IV SCH (16:19)
[2025-07-11 16:30] LABS: GLUCOMETER DEV NAME(LOC) ICUN.7; GLUCOSE,POINT OF CARE 158 MG/DL (70-110)
[2025-07-11 20:06] LABS: GLUCOMETER DEV NAME(LOC) 5N.1D; GLUCOSE,POINT OF CARE 112 MG/DL (70-110)
[2025-07-11 20:06] LABS: GLUCOMETER DEV NAME(LOC) 5N.1D; GLUCOSE,POINT OF CARE 133 MG/DL (70-110)
[2025-07-11 20:07] LABS: GLUCOMETER DEV NAME(LOC) 5N.1D; GLUCOSE,POINT OF CARE 117 MG/DL (70-110)
[2025-07-11 20:07] LABS: GLUCOMETER DEV NAME(LOC) 5N.1D; GLUCOSE,POINT OF CARE 139 MG/DL (70-110)
[2025-07-11 20:07] LABS: GLUCOMETER DEV NAME(LOC) 5N.1D; GLUCOSE,POINT OF CARE 140 MG/DL (70-110)
[2025-07-11 20:07] LABS: GLUCOMETER DEV NAME(LOC) 5N.1D; GLUCOSE,POINT OF CARE 132 MG/DL (70-110)
[2025-07-11 20:07] LABS: GLUCOMETER DEV NAME(LOC) 5N.1D; GLUCOSE,POINT OF CARE 143 MG/DL (70-110)
[2025-07-11 23:07] LABS: FRACTIONATED INSPIRED OXYGEN 90.0 % (21-100.0); SOURCE, BLOOD GAS ARTERIAL; TEMPERATURE, FAHRENHEIT, BG 98.0 FAHREN (96.0-98.6)
[2025-07-11 23:30] LABS: ABG BASE EXCESS -4.2 mmol/L (-2.0-3.0); ABG CARBOXYHEMOGLOBIN 0.5 % (0.5-1.5); ABG HCO3 21.9 mmol/L (21.0-28.0); ABG METHEMOGLOBIN 1.1 % (0.0-1.5); ABG OXYGEN CONTENT 14.5 mL/dL (15.0-23.0); ABG OXYGEN SATURATION 92.0 % (94.0-98.0); ABG OXYHEMOGLOBIN 90.5 % (94.0-98.0); ABG PCO2 26 mmHg (32.0-48.0); ABG PH 7.491 (7.350-7.450); ABG TOTAL HEMOGLOBIN 11.4 G/dL (13.5-17.5); PO2, ARTERIAL BG 60.2 mmHg (83.0-108.0)
[2025-07-11 23:31] LABS: ALLEN TEST, BLOOD GAS Positive; FLOW, BLOOD GAS 50.00 L/min (0.00-15.00); O2 DEVICE,BLOOD GAS HFNC (ROOM AIR); SITE, BLOOD GAS RT RADIAL
[2025-07-12] VITALS: BP 97/70; PULSE 127; RESP 60; TEMP 98.5; O2SAT 89
[2025-07-12] MEDS: DEXMEDETOMIDINE 400 MCG/NS 100 ML IV PRN (00:52)
[2025-07-12 03:25] VITALS: PULSE 124; RESP 55; O2SAT 91
[2025-07-12 04:00] VITALS: BP 108/73; PULSE 127; RESP 56; TEMP 98.9; O2SAT 89
[2025-07-12 05:39] LABS: PLATELET COUNT (AUTO) 171 K/uL (150-450); RED BLOOD CELL COUNT(AUTO) 3.32 MIL/uL (4.50-5.90); RED CELL DISTRIBUTION WIDTH 17.7 % (11.5-14.5); WHITE BLOOD COUNT (AUTO) 16.3 K/uL (4.5-11.0)
[2025-07-12 05:56] LABS: ASPARTATE AMINOTRANSFERASE 54 U/L (15-37); CALCIUM, TOTAL 8.1 mg/dL (8.8-10.5); CREATININE 1.01 mg/dL (0.60-1.30); GLOMERULAR FILTR. RATE CALC > 60 mL/min (>60); GLUCOSE,RANDOM 176 mg/dL (70-110); PHOSPHORUS 3.9 mg/dL (2.5-4.9); SODIUM SERUM 141 mmol/L (136-145); TOTAL PROTEIN, SERUM 6.3 g/dL (6.4-8.2); UREA NITROGEN, BLOOD 11 mg/dL (7-18)
[2025-07-12 05:58] LABS: TROPONIN I-HIGH SENSITIVITY 192 ng/L (<76)
[2025-07-12] MEDS ORDERED: FentaNYL CIT 1000MCG/0.9% NACL 100 ML IV PRN (06:15)
[2025-07-12] MEDS ORDERED: PROPOFOL 1000 MG/ISO-OSM 100 ML IV PRN (06:15)
[2025-07-12] MEDS ORDERED: EPINEPHrine 5 MG in DEXTROSE 5%-WATER 245 ML IV PRN ×2 (06:15→06:45)
[2025-07-12] MEDS ORDERED: DOPamine 400MG/D5W[STANDARD] 250 ML IV PRN (06:15)
[2025-07-12] MEDS ORDERED: VASOPRESSIN 40 UNITS in DEXTROSE 5%-WATER 98 ML IV PRN ×2 (06:30→06:45)
[2025-07-12 06:36] VITALS: PULSE 91; RESP 18; O2SAT 53
[2025-07-12 06:38] LABS: TROPONIN I-HIGH SENSITIVITY 176 ng/L (<76)
[2025-07-12 08:46] LABS: GLUCOMETER DEV NAME(LOC) ICUN.7; GLUCOSE,POINT OF CARE 160 MG/DL (70-110)
[2025-07-12 08:46] LABS: GLUCOMETER DEV NAME(LOC) ICUN.7; GLUCOSE,POINT OF CARE 139 MG/DL (70-110)
[2025-07-12 08:46] LABS: GLUCOMETER DEV NAME(LOC) ICU.S7; GLUCOSE,POINT OF CARE 106 MG/DL (70-110)
== END 2025-07-12 09:32 | DRG 871 ==
LOC: EMS 17:15 → EDH 22:03 → 5S 22:55 → ICU 07-02 12:35 → 5S 07-04 15:53 → ICU 07-10 12:17
PROVIDERS: ADMIT Internal Medicine; ATTEND Internal Medicine
PROC: BD19ZZZ Fluoroscopy of Duodenum (ICD-10-PCS; principal; 2025-07-03)
PROC: 5A12012 Performance of Cardiac Output, Single, Manual (ICD-10-PCS; 2025-07-06)
PROC: 05HB33Z Insertion of Infusion Device into Right Basilic Vein, Percutaneous Approach (ICD-10-PCS; 2025-07-06)
PROC: B54MZZA Ultrasonography of Right Upper Extremity Veins, Guidance (ICD-10-PCS; 2025-07-06)
PROC: 5A0935A Assistance with Respiratory Ventilation, Less than 24 Consecutive Hours, High Flow/Velocity Cannula (ICD-10-PCS; 2025-07-10)
PROC: 5A0935A Assistance with Respiratory Ventilation, Less than 24 Consecutive Hours, High Flow/Velocity Cannula (ICD-10-PCS; 2025-07-12)
DX: A41.9 Sepsis, unspecified organism (principal); J18.9 Pneumonia, unspecified organism; J96.01 Acute respiratory failure with hypoxia; K65.1 Peritoneal abscess; K85.90 Acute pancreatitis without necrosis or infection, unspecified; R65.21 Severe sepsis with septic shock; R18.8 Other ascites; J44.0 Chronic obstructive pulmonary disease with (acute) lower respiratory infection; N17.9 Acute kidney failure, unspecified; I10 Essential (primary) hypertension; D64.9 Anemia, unspecified; F10.10 Alcohol abuse, uncomplicated; F32.A Depression, unspecified; K56.7 Ileus, unspecified; J44.1 Chronic obstructive pulmonary disease with (acute) exacerbation; E87.1 Hypo-osmolality and hyponatremia; K86.1 Other chronic pancreatitis; I95.9 Hypotension, unspecified; E86.0 Dehydration; E83.42 Hypomagnesemia; E87.6 Hypokalemia; F17.200 Nicotine dependence, unspecified, uncomplicated; Z85.46 Personal history of malignant neoplasm of prostate; Z88.0 Allergy status to penicillin; Z79.899 Other long term (current) drug therapy
CPT/HCPCS: 36245; 36569; 71045; 71260; 72193; 74019; 74021; 74160; 74176; 74177; 74246; 76937; 80048; 80053; 80076; 80202; 80307; 81001; 82805; 82962; 83605; 83615; 83690; 83735; 83880; 84100; 84132; 84145; 84478; 84484; 85025; 85610; 85730; 87040; 87081; 92950; 93005; 93306; 94002; 94640; 97162; 97166; 97530; 97535; 99285; G0378; G0480; J0131; J0169; J0610; J0637; J0696; J1644; J2185; J2270; J2370; J2405; J2470; J3475; J3480; J3490; J7030; J7040; J7050; J7060; J7070; J7131; 36415-L1; 36415-TC; X7700